=== PATIENT | male | born 1950 | race Caucasian/White ===

== ENCOUNTER 2016-06-22 10:42 | Outpatient (CLI) | payer MEDICARE ==
[~2016-06-22] VITALS: Ht 177.8 cm; Wt 76.4 kg
--- NOTE | ~2016-06-22 | HEMODYNAMI ---
PATIENT:JODY RODRIGUEZ MEDICAL RECORD: [id number] : 46 LOCATION:[facility] ADMISSION DATE: 06/22/16 Generatedon:06/22/201614:24 Patient name: JODY RODRIGUEZ Patient #: [id number] : 1950 Date of study: 06/22/2016 Page: Of Hemodynamic Procedure Report Patient Data Patient Demographics Procedure consent was obtained First Name: JODY Gender: Male Last Name: MICHAEL : 1950 Patient #: [id number] Age: 65 year(s) Race: SSN: [id number] Additional ID: [id number] Contact details Address: [address] [place] [address] State: [place] City: [place] Zip code: [address] Admission Admission Data Admission Date: 06/22/2016 Admission Time: 10:42 Arrival Date: 06/22/2016 Arrival Time: 10:42 Admit Source: Other Insurance Payor: Medicare Height (in.): 70 BSA: 1.95 (m2) Height (cm.): 177.8 BMI: 24.39 (kg/m2) Weight (lbs.): 170 Weight (kg.): 77.11 Lab Results Lab Result Date: 06/22/2016 Lab Result Time: 0:00 Biochemistry Name Units Result Min Max BUN mg/dl 10 --(-*--)-- 7 18 Creatinine mg/dl 0.9 --(-*--)-- 0.6 1.3 CBC Name Units Result Min Max Hemoglobin g/dl 13 -*(----)-- 13.5 17.5 Procedure Procedure Types Cath Procedure Diagnostic Procedure [facility] w/Coronaries PCI Procedure Coronary Stent Initial Miscellaneous Procedures Moderate Sedation up to 30 minutes Procedure Description Procedure Date Procedure Date: 06/22/2016 Procedure Start Time: 14:05 Procedure End Time: 14:22 Procedure Staff Name Function Saurav Baldwin MD Performing Physician Mayi Velasco RT Scrub Fernanda Cash RN Nurse Libby Savage RT Monitor Procedure Data Cath Procedure Fluoroscopy Diagnostic fluoroscopy Total fluoroscopy Time: 4 time: 4 min min Diagnostic fluoroscopy Total fluoroscopy dose: dose: 236.49 mGy 236.49 mGy Contrast Material Contrast Material Type Amount (ml) Isovue 370 87 Entry Location Entry Primary Successful Side Size Upsize Upsize Entry Closure Lombardo ccessful Closure Location (Fr) 1 (Fr) 2 (Fr) Remarks Device Remarks Radial Right 6 Fr Mechanical artery Short Compression Estimated blood loss: 5 ml Diagnostic catheters Device Type Used For End Catheter Placement Cordis RBL-A catheter (NO LV Angiography CHARGE) Procedure Complications No complications Procedure Medications Medication Administration Route Dosage Oxygen NC 2 l/min Heparin Flush Bag added to field 2 bags (1000units/500ml NS) Lidocaine 2% added to field 20 Radial Cocktail added to field 1 syringe (Verapomil 2mg/Nitro 400mcg/Heparin 1500units) Versed I.V. 1 mg Fentanyl I.V. 50 mcg Versed I.V. 1 mg Fentanyl I.V. 50 mcg Radial Cocktail I.A. 1 syringe (Verapomil 2mg/Nitro 400mcg/Heparin 1500units) Heparin Bolus I.V. 4000 units Integrilin (Bolus I.V. 6.8 ml 2mg/ml) Plavix P.O. 600 mg Hemodynamics Rest BSA: 1.95 (m2) HGB: 13 (g/dl) O2 Consumption: Estimated: 217.35 (ml/min) O2 Cons umption indexed: Estimated:111.46 (ml/min/m) Heart Rate: 57 (bpm) Pressure Samples Time Site Value (mmHg) Purpose Heart Use Rate(bpm) 14:08 LV 80/6,11 Snapshot 100 Gradients Valve Time Site Site Mean SEP/DFP Peak To Heart Use 1 2 (mmHg) (sec/min) Peak Rate (mmHg) (bpm) Aortic 14:08 LV AO 83 Snapshots Pre Cath Intra NCS Post Cath Vital Signs Time Heart Resp SPO2 NIBP (mmHg) Rhythm Pain Sedation Rate (ipm) (%) Status Level (bpm) 13:54:23 67 16 95 137/66(110) NSR 0 (11) 10(A) , No pain 13:58:57 57 24 96 136/52(119) NSR 0 (11) 10(A) , No pain 14:03:22 62 22 98 130/61(102) NSR 0 (11) 10(A) , No pain 14:07:31 69 22 97 107/92(97) NSR 0 (11) 9(A) , No pain 14:11:47 72 22 95 111/59(82) NSR 0 (11) 9(A) , No pain 14:16:03 70 20 95 113/57(91) NSR 0 (11) 9(A) , No pain 14:20:22 69 23 96 115/63(92) NSR 0 (11) 9(A) , No pain 14:21:44 70 22 95 126/66(99) NSR 0 (11) 10(A) , No pain Medications Time Medication Route Dose Verified Delivered Reason Note s Effectiveness by by 13:53:17 Oxygen NC 2 l/min Saurav Fernanda Per physician [facility]. Brian Cash RN, MD 13:53:24 Heparin Flush added 2 bags Saurav Mg used for Bag to [facility] procedure (1000units/500ml field MD GLOVER NS) 13:53:31 Lidocaine 2% added 20ml Saurav Saurav used for to vial [facility] procedure field MD GLOVER 13:53:38 Radial Cocktail added 1 Saurav Saurav used for (Verapomil to syringe [place] procedure 2mg/Nitro field MD [place] 400mcg/Heparin 1500units) 14:03:44 Versed I.V. 1 mg Saurav Fernanda for sedation [facility] Brian Cash RN, MD 14:03:51 Fentanyl I.V. 50 mcg Saurav Fernanda for sedation [facility] Brian Cash RN, MD 14:05:27 Versed I.V. 1 mg Saurav Fernanda for sedation [facility] Brian Cash RN, MD 14:05:38 Fentanyl I.V. 50 mcg Saurav Fernanda for sedation [facility] Brian Cash RN, MD 14:06:13 Radial Cocktail I.A. 1 Saurav Lewisory for (Verapomil syringe [place] vasodilation 2mg/Yudelka GLOVER MD 400mcg/Heparin 1500units) 14:13:53 Heparin Bolus I.V. 4000 Saurav Espinalca for dose units [facility] Brian Cash RN anticoagulation verified MD pippa muñoz 14:16:00 Integrilin I.V. 6.8 ml Saurav Michael for 3.2 ml (Bolus 2mg/ml) [facility]. Brian Cash RN antiplatelet wasted MD therapy 14:22:01 Plavix P.O. 600 mg Saurav Michael for [facility] Brian Cash RN antiplatelet MD therapy Procedure Log Time Note 13:40:39 Fernanda Cash RN sent for patient. Start room use. 13:43:37 Informed consent obtained and on chart 13:43:42 Diagnostic Cath Status : Elective 13:44:45 Time tracking: Regular hours 13:44:49 Plan of Care:Hemodynamics will remain stable., Cardiac rhythm will remain stable., Comfort level will be maintained., Respiratory function will remain adequate., Patient/ family verbilizes understanding of procedure., Procedure tolerated without complication., Recovers from procedure without complications.. 13:46:09 Patient received from Pre/Post Procedure Room to [facility] 3 Alert and oriented. Tansferred to table in Supine position. 13:46:11 Warm blankets applied, and олег hugger turned on for patient comfort. 13:46:11 Correct patient and procedure confirmed by team. 13:46:14 ECG and BP/O2 sat monitors applied to patient. 13:53:03 Vital chart was started 13:53:17 Oxygen 2 l/min NC was given by Fernanda Cash RN; Per physician; 13:53:24 Heparin Flush Bag (1000units/500ml NS) 2 bags added to field was given by Saurav Baldwin MD; used for procedure; 13:53:31 Lidocaine 2% 20ml vial added to field was given by Saurav Baldwin MD; used for procedure; 13:53:38 Radial Cocktail (Verapomil 2mg/Nitro 400mcg/Heparin 1500units) 1 syringe added to field was given by Saurav Baldwin MD; used for procedure; 13:59:34 Baseline sample Acquired. 13:59:39 Rhythm: sinus rhythm 13:59:40 Full Disclosure recording started 14:00:04 H&P Date Dictated: 05/31/2016 Within 30 days and on chart., H&P Addendum completed by physician on day of procedure. (MUST COMPLETE FOR ALL OUTPATIENTS). 14:00:05 Pre-procedure instructions explained to patient. 14:00:05 Pre-op teaching completed and patient verbalized understanding. 14:00:06 Family in waiting room. 14:00:08 Patient NPO since Midnight. 14:01:09 Is the patient allergic to Iodine/contrast media? No. 14:01:11 Was the patient premedicated? No 14:01:13 Is patient on blood thinner?Yes 14:01:20 ACC The patient was administered the following blood thiners within the last 24 hours: ACCAspirin 14:01:30 Patient diabetic? No. 14:01:32 Previous problem with sedation/anesthesia? No ? 14:01:34 Snore? Yes 14:01:35 Sleep apnea? No 14:01:36 Deviated septum? No 14:01:37 Opens mouth fully? Yes 14:01:38 Sticks out tongue? Yes 14:01:41 Airway obstruction? Yes copd 14:01:46 Dentures? No ? 14:01:49 Pre procedure: right dorsailis pedis pulse 1+ Palpable, but thready & weak; easily obliterated 14:01:53 Patient pain scale 0/10 ?. 14:02:09 IV patent on arrival in left forearm with 0.9% NaCl at [facility]. 14:02:34 Lab Result : BUN 10 mg/dl 14:02:34 Lab Result : Hemoglobin 13 g/dl 14:02:34 Lab Result : Creatinine 0.9 mg/dl 14:02:38 Lab results completed and on chart. 14:02:42 Right Radial & Right Groin area was prepped with chlora-prep and draped in sterile fashion 14:02:44 Alarms reviewed by R. N. 14:02:44 Sharps counted by scrub and verified by R.N. 14:02:45 Physician arrived 14:02:45 --------ALL STOP TIME OUT------ 14:02:46 Final Timeout: patient, procedure, and site verified with staff and physician. All members of the team are in agreement. 14:02:48 Right Radial & Right Groin site verified by team. 14:02:50 Physical assessment completed. ASA score P 2 - A patient with mild systemic disease as per Saurav Baldwin MD. 14:02:54 Sedation plan: IV Moderate Sedation Versed, Fentanyl 14:03:02 Use device set Radial Dx 14:03:04 Acist Syringe opened to sterile field. 14:03:04 Medline Cath Pack opened to sterile field. 14:03:04 Bag Decanter opened to sterile field. 14:03:05 Terumo 6Fr Slender Glidesheath opened to sterile field. 14:03:05 St Johnny 260cm J .035 wire opened to sterile field. 14:03:05 Acist Hand Control opened to sterile field. 14:03:06 Acist Manifold opened to sterile field. 14:03:06 Tegaderm 4 x 4 opened to sterile field. 14:03:44 Versed 1 mg I.V. was given by Fernanda Cash RN; for sedation; 14:03:51 Fentanyl 50 mcg I.V. was given by Fernanda Cash RN; for sedation; 14:04:02 Procedure started. 14:05:15 Local anesthetic to right radial artery with Lidocaine 2% by Saurav Baldwin MD.INITIAL ACCESS ONLY 14:05:27 Versed 1 mg I.V. was given by Fernanda Cash RN; for sedation; 14:05:37 A 6 Fr Short sheath was inserted into the Right Radial artery 14:05:38 Fentanyl 50 mcg I.V. was given by Fernanda Cash RN; for sedation; 14:06:13 Radial Cocktail (Verapomil 2mg/Nitro 400mcg/Heparin 1500units) 1 syringe I.A. was given by Saurav Baldwin MD; for vasodilation; 14:06:30 Zero performed for pressure channel P1 14:08:00 A Cordis RBL-A catheter (NO CHARGE) was advanced over the wire and used for LV Angiography. 14:08:08 LV hemodynamics recorded. 14:08:09 LV gram done using DELVALLE 14:08:12 Injector settings: Ml/sec: 5, Volume: 15, 14:08:17 EF : 55 % 14:08:35 LCA angiography performed. 14:09:32 Injector settings: Ml/sec: 3, Volume: 6, 14:10:17 RCA angiography performed. 14:10:21 Injector settings: Ml/sec: 3, Volume: 6, 14:12:09 Cordis 6FR XBLAD 3.5 guide catheter opened to sterile field. 14:12:09 Merit BasixCompak Inflation Kit opened to sterile field. 14:12:10 Main [place] 300cm 0.014 guide wire opened to sterile field. 14:12:12 Catheter removed. 14:12:22 6 Fr xblad 3.5 guide catheter was inserted over the wire 14:13:53 Heparin Bolus 4000 units I.V. was given by Fernanda Cash RN; for anticoagulation; dose verified wtih dr muñoz 14:14:38 cougar wire advanced. 14:16:00 Integrilin (Bolus 2mg/ml) 6.8 ml I.V. was given by Fernanda Cash RN; for antiplatelet therapy; 3.2 ml wasted 14:16:22 Wire advanced across lesion. 14:18:46 Inflation Number: 1 A NewsFixedtronic Integrity 3.0 X 15 stent was prepped and advanced across the Mid LAD. The stent was deployed at 14 SRAVANTHI for 0:10 (min:sec). 14:19:51 Stent catheter was removed intact over wire. 14:19:51 Wire removed. 14:19:52 Guide catheter removed. 14:20:02 Terumo TR Band Standard opened to sterile field. 14:20:12 Sheath removed intact; hemostasis achieved with Mechanical Compression to the Right Radial artery. 14:20:14 Procedure ended.(Physican Out) 14:21:04 Fluoroscopy time 04.00 minutes. 14:21:10 Fluoroscopy dose: 236.49 mGy 14:21:10 Flurop Dose total: 236.49 14:21:14 Contrast amount:Isovue 370 87ml. 14:21:16 Sharps counted by scrub and verified by R.N. 14:21:17 Insertion/operative site no bleeding no hematoma. 14:21:22 Post right radial artery:stable 14:21:27 TR band inflated with 10cc of air. 14:21:29 Post Procedure Pulses reassessed and unchanged 14:21:32 Post procedure rhythm: unchanged. 14:21:34 Estimated blood loss: 5 ml 14:21:36 Post procedure instruction explained to patient.Patient verbalizes understanding. 14:21:36 Patient needs reinforcement of post procedure teaching. 14:21:45 Procedure type changed to Cath procedure, Diagnostic procedure, LHC, LHC w/Coronaries, PCI procedure, Coronary Stent Initial, Miscellaneous Procedures, Moderate Sedation up to 30 minutes 14:21:46 Procedure and supply charges have been captured, reviewed, submitted and are correct. 14:21:51 Procedure Complication : No complications 14:21:53 Vital chart was stopped 14:21:53 See physician's report for complete and final results. 14:21:55 Report given to Pre/Post Procedure Room. 14:21:57 Patient transfered to Pre/Post Procedure Room with Stretcher. 14:22:00 Procedure ended. 14:22:00 Full Disclosure recording stopped 14:22:01 Plavix 600 mg P.O. was given by Fernanda Cash RN; for antiplatelet therapy; 14:22:13 ACC-PCI Only Patient was given prescriptions, or instructed by Saurav Baldwin MD to start/continue the following medications upon discharge: Plavix 14:22:15 End room use (Document Last) 14:23:08 Admit Source: Other 14:23:11 Arrival Date: 06/22/2016 10:42:00 AM 14:23:26 Insurance Payor : Medicare 14:23:44 Patient Height : 177.8 inches 14:23:49 Patient Weight : 77.11 lbs Intervention Summary Intervention Notes Time ActionType Lesion and Equipment Action# Pressure Duration Attributes Used 14:18:46 Place stent Mid LAD Medtronic 1 14 00:10 Integrity 3.0 X 15 stent Device Usage Item Name Manufacture Quantity Catalog Hospital Part Current Minimal Lot# / Number Charge Number Stock Stock Serial# Code Acist Acist 1 [id number] [id number] 301534 650342 20 Syringe Medical Systems Inc Medline Cardinal 1 [id number] 838927 49204 703521 5 Cath Pack Health Bag Microtek 1 2001S 578395 67173 348289 5 Decanter Medical Inc. Terumo 6Fr Terumo 1 [id number] 846117 325556 458008 [address] Johnny 1 [id number] 098872 888520 336203 30 260cm J .035 wire Acist Hand Acist 1 89841 129173 045930 679869 5 Control Medical Systems Inc Acist Acist 1 56487 262157 124497 076570 5 Manifold Medical Systems Inc Tegaderm 4 3M 1 1626W 346185 789023 564728 5 x 4 Cordis Cardinal 1 [id number] 982308 105843 5 RBL-A Health catheter (NO CHARGE) Cordis 6FR Cardinal 1 [id number] 389335 503105 555879 10 XBLAD 3.5 Health guide catheter Merit Merit 1 [id number] 950930 628859 834913 15 BasixCompak Medical Inflation Kit Main Main 1 [id number] 378192 863123 918190 1 [place] Vascular 300cm 0.014 guide wire Medtronic Medtronic 1 [id number] 908737 115110 211120 0 [id number] Integrity 3.0 X 15 stent Terumo TR Terumo 1 [id number] 118786 584438 40 Band Standard Signature Audit [place] Stage Time Signature Unsigned Intra-Procedure 06/22/2016 Libby Savage 2:24:48 PM RT(R) Signatures Monitor : Libby Savage RT Signature : Date : Time : [id number] [place] [address]
[2016-06-22 11:19] VITALS: BP 138/62; Ht 177.8 cm; Wt 76.4 kg
[2016-06-22] MEDS ORDERED: BAYER CHEWABLE81 MG PO (11:23)
[2016-06-22] MEDS ORDERED: PROTONIX40 MG PO (11:23)
[2016-06-22] MEDS ORDERED: CELEXA20 MG PO (11:23)
[2016-06-22] MEDS ORDERED: BREO ELLIPTA 21 EACH (11:24)
[2016-06-22] MEDS ORDERED: KLONOPIN0.5 MG PO (11:24)
[2016-06-22] MEDS ORDERED: VENTOLIN HFA18 GM INH (11:25)
[2016-06-22 12:29] LABS: BASOPHILS 0.3 % (0.0-2.0); EOSINOPHILS 3.2 % (0-7); HEMATOCRIT 38.7 % (42.0-54.0); IMMATURE GRANULOCYTES 0.1 % (0-5); LYMPHOCYTES 19.2 % (15-50); MCH 30.9 pg (26.0-34.0); MCHC 33.6 g/dL (31.0-37.0); MCV 91.9 fL (80.0-100.0); MEAN PLATELET VOLUME 10.6 fL (7.4-10.4); MONOCYTES 15.5 % (2-11); NEUTROPHILS 61.7 % (40-80); PLATELET COUNT 303 10x3/uL (130-400); RBC 4.21 10x6/uL (4.20-6.10); RDW 14.6 % (11.5-14.5)
[2016-06-22 12:46] LABS: CALC OSMOLALITY 276 mosm/kg (275-300); CARBON DIOXIDE 29.5 mmol/L (21.0-32.0); CHLORIDE - SERUM 105 mmol/L (98-107); CREATININE - SERUM 0.9 mg/dL (0.6-1.3); GLUCOSE 101 mg/dL (74-106); SODIUM 139 mmol/L (136-145); UREA NITROGEN 10 mg/dL (7-18); eGFR NON AFRICAN AMERICAN 89 mL/min (90-120)
[2016-06-22 12:47] LABS: POTASSIUM - SERUM 4.3 mmol/L (3.5-5.1)
[2016-06-22] MEDS ORDERED: PLAVIX75 MG PO (14:45)
--- NOTE | 2016-06-22 16:38 | NUR ---
1500-TR BAND INTACT, NO BLEEDING NOTED, SLEEPING 1530-TR BAND UNCHANGED
--- NOTE | 2016-06-22 17:51 | NUR ---
1745-3CCAIR ATTEMPTED-BLEEDING NOTED, REINFLATED
--- NOTE | 2016-06-24 14:02 | OP ---
PATIENT NAME: JODY RODRIGUEZ MEDICAL RECORD: [id number] :46 LOCATION:D.CAT ADMISSION DATE: SURGEON: CADE ALEXANDER MD DATE OF OPERATION: 06/22/2016 PROCEDURES: Left heart catheterization, selective coronary angiography, right radial approach. CATHETERS: [place] catheter. The procedure was well tolerated and we proceeded immediately to PTCA stenting after the procedure was finished. FINDINGS: Left ventriculography in the 30-degree DELVALLE view. Normal wall motion, normal systolic function. CORONARY ANATOMY: Left main: Left main is free of disease. LAD: LAD has a tight 90% stenosis after takeoff of the first septal, best seen in the DELVALLE caudal view. Circumflex: Circumflex disease. Right coronary artery: Has a distal stenosis about 80%. IMPRESSION: Two-vessel disease. PLAN: Intervention in a staged fashion. Using an indwelling sheath, an XB LAD guide catheter provided good guide catheter support followed by a 300 cm [place] XT wire was placed across the totally occluded LAD ____ of this vessel was followed by 3.0 x 15 mm Integrity nondrug-eluting stent inflated to 14 atmospheres for 45 seconds. Final injection shows excellent resolution of 80% to 90% stenosis, no significant residual. APPLE flow was 3 throughout the procedure. Heparin was used in the case. Plavix was loaded in the lab. Sheath closed with TR band. TRANSINT:[id number] Voice Confirmation ID: [id number] DOCUMENT ID: [id number] CADE ALEXANDER MD at 1402 CC: [id number] DICTATION DATE: 06/22/16 1427 LEAD SUPPLY WORKER: 06/22/16 2327 DEP CLI 06/22/16 [id number] [place] [address]
== END 2016-06-22 18:45 | disposition home or self-care (01) ==
LOC: D.CATH 10:42
PROVIDERS: Internal Medicine Interventional Cardiology
DX: I25.119 Atherosclerotic heart disease of native coronary artery with unspecified angina pectoris (principal)

== ENCOUNTER 2016-06-30 10:54 | Outpatient (CLI) | payer MEDICARE ==
[~2016-06-30] VITALS: Ht 177.8 cm; Wt 76.4 kg
--- NOTE | ~2016-06-30 | HEMODYNAMI ---
PATIENT:JODY RODRIGUEZ MEDICAL RECORD: [id number] : 46 LOCATION:DAlexiCAT ADMISSION DATE: 06/30/16 Generatedon:06/30/201613:30 Patient name: JODY RODRIGUEZ Patient #: [id number] : 1950 Date of study: 06/30/2016 Page: Of Hemodynamic Procedure Report Patient Data Patient Demographics Procedure consent was obtained First Name: JODY Gender: Male Last Name: MICHAEL : 1950 Patient #: [id number] Age: 65 year(s) Race: SSN: [id number] Additional ID: [id number] Contact details Address: [address] [place] [address] State: [place] City: [place] Zip code: [address] Past Medical History Allergies: No known allergies Admission Admission Data Admission Date: 06/30/2016 Admission Time: 10:54 Arrival Date: 06/30/2016 Arrival Time: 13:00 Admit Source: Other Insurance Payor: Medicare Height (in.): 70 BSA: 1.94 (m2) Height (cm.): 177.8 BMI: 24.11 (kg/m2) Weight (lbs.): 168 Weight (kg.): 76.2 Lab Results Lab Result Date: 06/30/2016 Lab Result Time: 11:35 Biochemistry Name Units Result Min Max BUN mg/dl 10 --(-*--)-- 7 18 Creatinine mg/dl 1 --(--*-)-- 0.6 1.3 CBC Name Units Result Min Max Hematocrit % 40.9 -*(----)-- 42 54 Hemoglobin g/dl 13.4 -*(----)-- 13.5 17.5 Procedure Procedure Types Cath Procedure PCI Procedure Coronary Stent Initial Miscellaneous Procedures Moderate Sedation up to 15 minutes Procedure Description Procedure Date Procedure Date: 06/30/2016 Procedure Start Time: 13:14 Procedure End Time: 13:29 Procedure Staff Name Function Saurav Baldwin MD Performing Physician Libby Savage RT Scrub Fernanda Cash RN Nurse Hussein Esqueda RT Monitor Indication Angina Procedure Data Cath Procedure Fluoroscopy Diagnostic fluoroscopy Total fluoroscopy Time: 3.2 time: 3.2 min min Diagnostic fluoroscopy Total fluoroscopy dose: 200 dose: 200 mGy mGy Contrast Material Contrast Material Type Amount (ml) Isovue 300 63 Entry Location Entry Primary Successful Side Size Upsize Upsize Entry Closure Lombardo ccessful Closure Location (Fr) 1 (Fr) 2 (Fr) Remarks Device Remarks Radial Right 6 Fr Mechanical artery Short Compression Estimated blood loss: 10 ml Procedure Complications No complications Procedure Medications Medication Administration Route Dosage Oxygen NC 2 l/min Heparin Flush Bag added to field 2 bags (1000units/500ml NS) Lidocaine 2% added to field 20 Versed I.V. 1 mg Fentanyl I.V. 50 mcg Versed I.V. 1 mg Fentanyl I.V. 50 mcg Heparin Bolus I.V. 4000 units Hemodynamics Rest BSA: 1.94 (m2) HGB: 13.4 (g/dl) O2 Consumption: Estimated: 214.99 (ml/min) O2 Co nsumption indexed: Estimated:110.82 (ml/min/m) Heart Rate: 56 (bpm) Snapshots Pre Cath Intra NCS Post Cath Vital Signs Time Heart Resp SPO2 etCO2 MF5tvyt NIBP (mmHg) Rhythm Pain Sedation Rate (ipm) (%) (mmHg) (mmHg) Status Level (bpm) 12:52:11 59 26 100 0 0 160/74(128) NSR 0 (11) 10(A) , No pain 12:57:10 55 21 100 0 0 Measuring NSR 0 (11) 10(A) , No pain 12:57:28 55 21 100 0 0 154/69(125) NSR 0 (11) 10(A) , No pain 13:01:57 58 21 100 0 0 143/68(108) NSR 0 (11) 10(A) , No pain 13:06:21 61 20 100 0 0 126/66(100) NSR 0 (11) 10(A) , No pain 13:10:39 62 20 97 0 0 127/65(96) NSR 0 (11) 10(A) , No pain 13:14:46 63 17 97 0 0 115/59(89) NSR 0 (11) 10(A) , No pain 13:18:59 76 19 96 0 0 112/57(83) NSR 0 (11) 9(A) , No pain 13:23:12 75 19 96 0 0 115/57(82) NSR 0 (11) 9(A) , No pain 13:27:24 77 19 98 0 0 124/68(90) NSR 0 (11) 9(A) , No pain Medications Time Medication Route Dose Verified Delivered Reason Notes Effectiveness by by 12:53:56 Oxygen NC 2 Saurav Fernanda Per physician l/min St. Brian Cash RN, MD 12:54:04 Heparin Flush added 2 Saurav Saurav used for Bag to bags [facility] procedure (1000units/500ml field MD [place] NS) 12:54:12 Lidocaine 2% added 20ml [facility]av [facility]av [facility] [place] 13:12:42 Versed I.V. 1 mg Saurav Fernanda for sedation [facility]. Brian Cash RN, MD 13:12:50 Fentanyl I.V. 50 Saurav Fernanda for sedation mcg [facility]. Brian Cash RN, MD 13:14:58 Versed I.V. 1 mg Saurav Fernanda for sedation St. Brian Cash RN, MD 13:15:01 Fentanyl I.V. 50 Saurav Fernanda for sedation mcg St. Brian Cash RN, MD 13:15:57 Heparin Bolus I.V. 4000 Saurav Fernanda for dose units St. Brian Cash RN anticoagulation verified MD by dr muñoz Procedure Log Time Note 12:25:56 Libby Savage RT(R) sent for patient. Start room use. 12:34:42 Admit Source: Other 12:34:52 Arrival Date: 06/30/2016 1:00:00 PM 12:35:04 Insurance Payor : Medicare 12:35:46 Indication : Angina 12:36:16 Time tracking: Regular hours 12:36:21 Plan of Care:Hemodynamics will remain stable., Cardiac rhythm will remain stable., Comfort level will be maintained., Respiratory function will remain adequate., Patient/ family verbilizes understanding of procedure., Procedure tolerated without complication., Recovers from procedure without complications.. 12:45:46 Patient received from Pre/Post Procedure Room to CCL 1 Alert and oriented. Tansferred to table in Supine position. 12:45:48 Warm blankets applied, and олег hugger turned on for patient comfort. 12:46:07 Correct patient and procedure confirmed by team. 12:46:09 Signed procedure consent form obtained from patient. 12:46:10 ECG and BP/O2 sat monitors applied to patient. 12:48:01 Vital chart was started 12:53:29 Baseline sample Acquired. 12:53:37 Rhythm: sinus rhythm 12:53:38 Full Disclosure recording started 12:53:44 H&P Date Dictated: 06/30/2016 Within 30 days and on chart., H&P Addendum completed by physician on day of procedure. (MUST COMPLETE FOR ALL OUTPATIENTS). 12:53:45 Pre-procedure instructions explained to patient. 12:53:46 Pre-op teaching completed and patient verbalized understanding. 12:53:47 Family in waiting room. 12:53:49 Patient NPO since Midnight. 12:53:54 Patient allergic to No known allergies 12:53:56 Oxygen 2 l/min NC was administered by Fernanda Cash RN; Per physician; 12:53:56 Is the patient allergic to Iodine/contrast media? No. 12:53:58 Is patient on blood thinner?Yes 12:54:00 ACC The patient was administered the following blood thiners within the last 24 hours: ACCPlavix 12:54:02 Patient diabetic? No. 12:54:04 Heparin Flush Bag (1000units/500ml NS) 2 bags added to field was administered by Saurav Baldwin MD; used for procedure; 12:54:06 Previous problem with sedation/anesthesia? No ? 12:54:12 Lidocaine 2% 20ml vial added to field was administered by Saurav Baldwin MD; used for procedure; 12:58:20 Snore? Yes 12:58:22 Sleep apnea? No 12:58:23 Deviated septum? No 12:58:25 Opens mouth fully? Yes 12:58:26 Sticks out tongue? Yes 12:58:29 Airway obstruction? Yes COPD 12:58:33 Dentures? No ? 12:58:48 Modified Omar's test Ulnar < 7 seconds 12:58:50 Patient pain scale 0/10 ?. 12:59:04 IV patent on arrival in left hand with 0.9% NaCl at [facility]. 13:00:20 Lab Result : BUN 10 mg/dl 13:00:20 Lab Result : Creatinine 1 mg/dl 13:00:20 Lab Result : Hemoglobin 13.4 g/dl 13:00:20 Lab Result : Hematocrit 40.9 % 13:00:23 Lab results completed and on chart. 13:00:33 Right Radial & Right Groin area was prepped with chlora-prep and draped in sterile fashion 13:00:34 Alarms reviewed by R. N. 13:00:34 Sharps counted by scrub and verified by R.N. 13:00:38 Use device set Radial PCI 13:00:39 Tegaderm 4 x 4 opened to sterile field. 13:00:40 Acist Manifold opened to sterile field. 13:00:41 Acist Syringe opened to sterile field. 13:00:42 Acist Hand Control opened to sterile field. 13:00:42 Bag Decanter opened to sterile field. 13:00:43 Medline Cath Pack opened to sterile field. 13:00:44 Merit BasixCompak Inflation Kit opened to sterile field. 13:00:45 Terumo 6Fr Slender Glidesheath opened to sterile field. 13:00:46 St Johnny 260cm Straight .035 wire opened to sterile field. 13:00:54 Physician paged 13:01:37 Patient Height : 70 cm 13:01:43 Patient Weight : 168 kg 13:01:51 PCI Cath Status : Elective 13:07:44 Zero performed for pressure channel P1 13:12:00 Physician arrived 13:12:01 --------ALL STOP TIME OUT------ 13:12:02 Final Timeout: patient, procedure, and site verified with staff and physician. All members of the team are in agreement. 13:12:06 Right Radial & Right Groin site verified by team. 13:12:09 Physical assessment completed. ASA score P 2 - A patient with mild systemic disease as per Saurav Baldwin MD. 13:12:14 Sedation plan: IV Moderate Sedation Versed, Fentanyl 13:12:42 Versed 1 mg I.V. was administered by Fernanda Cash RN; for sedation; 13:12:50 Fentanyl 50 mcg I.V. was administered by Fernanda Cash RN; for sedation; 13:13:55 Procedure started. 13:14:02 Local anesthetic to right radial artery with Lidocaine 2% by Saurav Baldwin MD.INITIAL ACCESS ONLY 13:14:48 Medtronic Launcher 6Fr HS II guide catheter opened to sterile field. 13:14:58 Versed 1 mg I.V. was administered by Fernanda Cash RN; for sedation; 13:15:01 Fentanyl 50 mcg I.V. was administered by Fernanda Cash RN; for sedation; 13:15:15 A 6 Fr Short sheath was inserted into the Right Radial artery 13:15:57 Heparin Bolus 4000 units I.V. was administered by Fernanda Cash RN; for anticoagulation; dose verified by dr muñoz 13:16:20 6 Fr HS 2 guide catheter was inserted over the wire 13:19:41 Main Garfield 300cm 0.014 guide wire opened to sterile field. 13:19:53 cougar wire advanced. 13:19:55 Wire advanced across lesion. 13:23:10 Inflation Number: 1 A Medtronic Integrity 3.0 X 15 stent was prepped and advanced across the Mid RCA. The stent was deployed at 14 SRAVANTHI for 0:40 (min:sec). 13:24:39 Inflation number: 2 The stent balloon was then re-inflated across the Mid RCA to 12 SRAVANTHI for 0:40 (min:sec). 13:25:19 Wire removed. 13:25:19 Guide catheter removed. 13:26:24 Terumo TR Band Standard opened to sterile field. 13:26:35 Sheath removed intact; hemostasis achieved with Mechanical Compression to the Right Radial artery. 13:26:38 Procedure ended.(Physican Out) 13:26:51 Fluoroscopy time 03.20 minutes. 13:26:55 Flurop Dose total: 200 13:26:55 Fluoroscopy dose: 200 mGy 13:27:07 Contrast amount:Isovue 300 63ml. 13:27:09 Sharps counted by scrub and verified by R.N. 13:27:18 TR band inflated with 12cc of air. 13:27:31 Insertion/operative site no bleeding no hematoma. 13:27:38 Post right radial artery:stable, soft, clean and dry 13:27:39 Post Procedure Pulses reassessed and unchanged 13:27:42 Post-procedure physical assessment completed. ASA score P 2 - A patient with mild systemic disease as per Saurav Baldwin MD. 13:27:44 Post procedure rhythm: unchanged. 13:27:46 Estimated blood loss: 10 ml 13:27:48 Post procedure instruction explained to patient.Patient verbalizes understanding. 13:27:49 Patient needs reinforcement of post procedure teaching. 13:28:23 Procedure type changed to Cath procedure, PCI procedure, Coronary Stent Initial, Miscellaneous Procedures, Moderate Sedation up to 15 minutes 13:28:49 Procedure and supply charges have been captured, reviewed, submitted and are correct. 13:28:52 Procedure Complication : No complications 13:28:54 Vital chart was stopped 13:28:57 See physician's report for complete and final results. 13:28:59 Report given to Pre/Post Procedure Room. 13:29:02 Patient transfered to Pre/Post Procedure Room with Stretcher. 13:29:04 Procedure ended. 13:29:04 Full Disclosure recording stopped 13:29:34 ACC-PCI Only Patient was given prescriptions, or instructed by Saurav Baldwin MD to start/continue the following medications upon discharge: Plavix 13:29:36 End room use (Document Last) Intervention Summary Intervention Notes Time ActionType Lesion and Equipment Action# Pressure Duration Attributes Used 13:23:10 Place stent Mid RCA Medtronic 1 14 00:40 Integrity 3.0 X 15 stent 13:24:39 Reinflate Mid RCA Medtronic 2 12 00:40 stent Integrity balloon 3.0 X 15 stent Device Usage Item Name Manufacture Quantity Catalog Hospital Part Current Minimal Lot# / Number Charge Number Stock Stock Serial# Code [facility] 4 1 [id number] [id number] 5 x 4 Acist Acist 1 68882 108380 244676 [id number] 5 Manifold Medical Systems Inc Acist Acist 1 05671 112199 794570 800581 20 Syringe Medical Systems Inc Acist Hand Acist 1 39563 920018 676412 241309 5 Control Medical Systems Inc Bag Microtek 1 2002S 864116 13852 414345 5 Decanter Medical Inc. Medline Cardinal 1 [id number] 456542 57867 143509 5 Paybubble [facility] Merit 1 [id number] 009359 500489 593210 15 BasProfitBricks Medical Inflation Kit Terumo 6Fr Terumo 1 [id number] 783481 267482 679289 [address] Johnny 1 076629 566696 365776 652796 1 260cm Straight .035 wire Medtronic Medtronic 1 [id number] 731360 80024 194261 1 Launcher 6Fr HS II guide catheter Main Main 1 [id number] 045770 068965 451261 1 Garfield Vascular 300cm 0.014 guide wire Medtronic Medtronic 1 [id number] 281617 546869 565773 6 [id number] Integrity 3.0 X 15 stent Terumo TR Terumo 1 [id number] 035911 137741 955949 40 Band Standard Signature Audit [place] Stage Time Signature Unsigned Intra-Procedure 06/30/2016 Hussein Esqueda 1:29:57 PM RT(R) Signatures Monitor : Hussein Esqueda RT Signature : Date : Time : [place] [id number] [place] [address]
[~2016-06-30 10:54] MED LIST: BAYER CHEWABLE81 MG PO; BREO ELLIPTA 21 EACH; CELEXA20 MG PO; KLONOPIN0.5 MG PO; PLAVIX75 MG PO; PROTONIX40 MG PO; VENTOLIN HFA18 GM INH
[2016-06-30 11:20] VITALS: BP 135/66; Ht 177.8 cm; Wt 76.4 kg
[2016-06-30 11:42] LABS: BASOPHILS 0.5 % (0.0-2.0); EOSINOPHILS 2.7 % (0-7); HEMATOCRIT 40.9 % (42.0-54.0); HEMOGLOBIN 13.4 g/dL (13.5-17.5); IMMATURE GRANULOCYTES 0.4 % (0-5); LYMPHOCYTES 18.5 % (15-50); MCH 30.2 pg (26.0-34.0); MCHC 32.8 g/dL (31.0-37.0); MCV 92.3 fL (80.0-100.0); MEAN PLATELET VOLUME 9.6 fL (7.4-10.4); NEUTROPHILS 66.9 % (40-80); PLATELET COUNT 307 10x3/uL (130-400); RBC 4.43 10x6/uL (4.20-6.10); RDW 14.2 % (11.5-14.5); WBC 7.5 10x3/uL (4.8-10.8)
[2016-06-30 12:05] LABS: CALC OSMOLALITY 275 mosm/kg (275-300); CALCIUM 8.7 mg/dL (8.5-10.1); CARBON DIOXIDE 30.4 mmol/L (21.0-32.0); CHLORIDE - SERUM 102 mmol/L (98-107); GLUCOSE 80 mg/dL (74-106); POTASSIUM - SERUM 4.1 mmol/L (3.5-5.1); SODIUM 139 mmol/L (136-145); UREA NITROGEN 10 mg/dL (7-18); eGFR NON AFRICAN AMERICAN 79 mL/min (90-120)
--- NOTE | 2016-06-30 14:00 | NUR ---
1400-URINAL GIVEN, TR BAND INTACT, NO BLEEDING NOTED
--- NOTE | 2016-06-30 16:11 | NUR ---
1430-RESTING COMFORTABLY, TR BAND INTACT- NO BLEEDING NOTED
--- NOTE | 2016-06-30 17:10 | NUR ---
1645- IV D'C WITH CATH TIP INTACT, WRITTEN AND VERBAL INSTRUCTIONS GIVEN TO PT AND SISTERS, VERBAL UNDERSTANDING. DENIES FURTHUR NEEDS
--- NOTE | 2016-07-02 09:45 | HP ---
PATIENT: JODY RODRIGUEZ MEDICAL RECORD: [id number] ACCOUNT: [id number] LOCATION:[facility]ANDA : 46 ADMISSION DATE: 06/30/16 HISTORY AND PHYSICAL EXAMINATION HISTORY OF PRESENT ILLNESS: The patient is a 65-year-old gentleman with a known history of coronary artery disease, status post recent intervention to LAD, still having some angina, though this has improved, admitted for staged intervention of the right coronary. PAST MEDICAL HISTORY: 1. History of hypertension. 2. Known history of coronary artery disease. 3. Obstructive pulmonary disease. MEDICATIONS: Include Clonazepam 1 mg p.o. at bedtime, Celexa 20 mg p.o. daily, meclizine 25 q.6 p.r.n. and albuterol inhaler 2 puffs b.i.d. SOCIAL HISTORY: He lives in [address]. He takes care of all ADLs. Nonsmoker. REVIEW OF SYSTEMS: The patient reports easy bruising but reports no swollen glands. The patient reports no fever, no night sweats, no significant weight gain, no significant weight loss. No significant exercise tolerance. The patient reports no dry eyes, no irritation, no vision change. Patient reports no difficulty hearing and no ear pain. Patient reports no frequent nose bleeds or nose and sinus problems. Patient reports on arm pain on exertion. No shortness of breath while lying down. No history of heart murmur. Patient reports no cough, no wheezing or coughing up blood. Patient reports no abdominal pain, no vomiting. Normal appetite. No diarrhea and not vomiting blood. No nausea and no constipation. Patient reports no incontinence. No difficulty urinating. No hematuria. No increased frequency. Patient reports no muscle aches. No weakness, no arthralgias, no back pain. No swelling of the extremities. Patient reports no abnormal mole, no jaundice, no rashes. Reports no loss of consciousness. No weakness and no numbness. No seizures, dizziness, or headaches. The patient reports no depression, no sleep disturbance, feeling safe in a relationship and no alcohol abuse. Patient reports on fatigue. Reports no runny nose or sinus pressure. No itching, no hives, and no frequent sneezing. PHYSICAL EXAMINATION: GENERAL: Pleasant gentleman in no acute distress. VITAL SIGNS: Blood pressure 135/66, pulse 70 and regular. HEENT: Normocephalic and atraumatic. NECK: No JVD or bruit HEART: Regular. LUNGS: [place] clear. ABDOMEN: Soft, nontender. EXTREMITIES: Pulses 2+ with no edema. IMPRESSION: Known history of coronary artery disease, status post LAD intervention. PLAN: Intervention of the right momentarily. TRANSINT:[id number] Voice Confirmation ID: [id number] DOCUMENT ID: [id number] HISTORY AND PHYSICAL [id number] JODY RODRIGUEZ,CADE Bah MD at 0945 CC: [id number] DICTATION DATE: 06/30/16 1329 SOCIAL MEDIA CONTENT SPECIALIST: 06/30/16 1418 DEP CLI 06/30/16 [place] [id number] [place] [address]
--- NOTE | 2016-07-02 09:45 | OP ---
PATIENT NAME: JODY RODRIGUEZ MEDICAL RECORD: [id number] :46 LOCATION:D.CAT ADMISSION DATE: SURGEON: CADE ALEXANDER MD DATE OF OPERATION: 06/30/2016 For catheterization report, please see result dictated previously. DESCRIPTION OF PROCEDURE: After sheath was put on the right radial artery, a hockey stick guide catheter provided excellent guide support to the right coronary. Repeat small business consultant films showed 80% stenosis in the mid portion, ____ the RV branch. Stent deployed was a 3.0 x 15 mm Integrity nondrug-eluting stent inflated up to 14 atmospheres for 45 seconds. Final injection show excellent resolution of 80% stenosis, no significant residual. APPLE flow was 3 throughout the procedure. The patient was on Plavix, heparin was used during the case. Sheath closed with ExoSeal device. TRANSINT:[id number] Voice Confirmation ID: [id number] DOCUMENT ID: [id number] CADE ALEXANDER MD at 0945 CC: [id number] DICTATION DATE: 06/30/16 1327 CHISEL WORKER: 06/30/16 2232 DEP CLI 06/30/16 [place] [id number] [place] [id number]
== END 2016-06-30 17:00 | disposition home or self-care (01) ==
LOC: D.CATH 10:54
PROVIDERS: Internal Medicine Interventional Cardiology
DX: I25.119 Atherosclerotic heart disease of native coronary artery with unspecified angina pectoris (principal)

== ENCOUNTER 2018-09-09 05:00 | Inpatient (IN) | payer MEDICARE ==
[~2018-09-09] VITALS: Ht 177.8 cm; Wt 60.0 kg
--- NOTE | ~2018-09-09 | OP ---
PATIENT NAME: JODY RODRIGUEZ MEDICAL RECORD: [id number] :46 LOCATION:D.M2 D.2116 ADMISSION DATE:09/09/18 SURGEON: SANJUANITA CARY MD DATE OF OPERATION: 09/11/2018 PROCEDURES: 1. PTCA stent RCA. 2. Intravascular ultrasound of the LAD. 3. IFR LAD. 4. IFR left circumflex 5. Left heart catheterization. 6. Selective coronary angiography. 7. Left ventriculogram. INDICATION: Non-Q-wave myocardial infarction, coronary artery disease, and cardiomyopathy. PROCEDURE IN DETAIL: After informed consent was obtained and after a detailed description of the risks, benefits as well as alternative therapies, the patient elected to proceed with angiogram and angioplasty. The right radial area was prepped and draped in a normal sterile fashion. Right radial artery was cannulated via modified Seldinger technique with placement of 6-Faroese sheath. All catheters exchanged through this sheath. FINDINGS: The left ventriculogram was performed in standard 30-degree DELVALLE view reveals mildly depressed ejection fraction at 40%. SELECTIVE CORONARY ANGIOGRAPHY: 1. Left main is with no significant angiographic disease. 2. Left anterior descending has previously placed stents proximally. There is a questionable stenosis at the ostium. This is 61% by intravascular ultrasound; however, IFR was normal. 3. Left circumflex has a questionable stenosis in the mid vessel; however, IFR was normal. 4. The right coronary artery has multiple previously placed stents. There is 90% in-stent restenosis throughout. PTCA STENT OF THE RCA: Stents used were 3.0 x 38 and 3.0 x 15, both Baltazar stents. Result was 0% residual stenosis. OVERALL IMPRESSION: Successful percutaneous transluminal coronary angioplasty stent of the right coronary artery going from 90% initial stenosis that was in-stent restenosis to 0% residual. TRANSINT:[id number] Voice Confirmation ID: [id number] DOCUMENT ID: [id number] SANJUANITA CARY MD CC: [id number] DICTATION DATE: 09/11/18 1038 BIGHT MAKER: 09/11/18 1307 ADM IN [facility] [address] [place] [address]
--- NOTE | ~2018-09-09 | HEMODYNAMI ---
PATIENT:JODY RODRIGUEZ MEDICAL RECORD: [id number] : 46 [id number] ADMISSION DATE: 09/09/18 Generatedon:09/11/201810:39 Patient name: JODY RODRIGUEZ Patient #: [id number] : 1950 Date of study: 09/11/2018 Page: Of Hemodynamic Procedure Report Patient Data Patient Demographics Procedure consent was obtained First Name: JODY Gender: Male Last Name: MICHAEL : 1950 Patient #: [id number] Age: 67 year(s) Race: SSN: [id number] Additional ID: [id number] Contact details Address: [address] [place] [address] State: [place] City: [place] Zip code: [address] Past Medical History Allergies: No known allergies Admission Admission Data Admission Date: 09/09/2018 Admission Time: 15:09 Admit Source: Emergency department Room #: D.2116 Lab Results Lab Result Date: 09/11/2018 Lab Result Time: 0:00 Biochemistry Name Units Result Min Max Troponin l ng/ml 3.1 --(----)-* 0 0.06 CBC Name Units Result Min Max Hematocrit % 36.6 *-(----)-- 42 54 Hemoglobin g/dl 12.6 -*(----)-- 13.5 17.5 Procedure Procedure Types Cath Procedure Diagnostic Procedure LHC LHC w/Coronaries FFR/IVUS FFR Initial FFR Additional Intra-Coronary IVUS Initial Sedation Charges Moderate Sedation up to 15 minutes PCI Procedure Coronary Stent Coronary Stent Initial Procedure Description Procedure Date Procedure Date: 09/11/2018 Procedure Start Time: 10:14 Procedure End Time: 10:38 Procedure Staff Name Function Israel Viera MD Performing Physician Hussein Esqueda RT Monitor Libby Savage RT Scrub Gillian Mesa RN Nurse Procedure Data Cath Procedure Fluoroscopy Diagnostic fluoroscopy Total fluoroscopy Time: 6.2 time: 6.2 min min Diagnostic fluoroscopy Total fluoroscopy dose: 423 dose: 423 mGy mGy Contrast Material Contrast Material Type Amount (ml) Isovue 300 102 Entry Location Entry Primary Successful Side Size Upsize Upsize Entry Closure Lombardo ccessful Closure Location (Fr) 1 (Fr) 2 (Fr) Remarks Device Remarks Radial Right 6 Fr Mechanical artery Short Compression Estimated blood loss: 10 ml Diagnostic catheters Device Type Used For End Catheter Placement DIAGNOSTIC Clarita 110cm 5 Procedure Fr catheter ([id number]) Procedure Complications No complications Procedure Medications Medication Administration Route Dosage 0.9% NaCl I.V. 100 ml/hr Oxygen etCO2 Nasal cannula 2 l/min Lidocaine 2% added to field 20 Heparin Flush Bag added to field 2 bags (1000units/500ml NS) Radial Cocktail added to field 1 syringe (Verapamil 2mg/Nitro 400mcg/Heparin 1500units) Versed I.V. 2 mg Fentanyl I.V. 50 mcg Dobutamine I.V. drip 5 mcg/kg/min (500mg/250ml D5W) Heparin Bolus I.V. 4000 units Hemodynamics Rest HGB: 12.6 (g/dl) Heart Rate: 59 (bpm) Snapshots Pre Cath Intra NCS Post Cath Vital Signs Time Heart Resp SPO2 etCO2 NIBP Rhythm Pain Sedation Rate (ipm) (%) (mmHg) (mmHg) Status Level (bpm) 10:11:56 58 14 98 23.1 119/48(90) SB 0 (11) 10(A) , No pain 10:16:14 62 13 98 11.1 110/55(70) NSR 0 (11) 9(A) , No pain 10:20:26 61 14 98 14.1 84/45(58) NSR 0 (11) 9(A) , No pain 10:24:36 57 13 98 16.4 91/47(59) SB 0 (11) 9(A) , No pain 10:28:46 57 13 98 12.9 94/50(62) SB 0 (11) 9(A) , No pain 10:32:53 63 10 98 13.4 100/57(70) SB 0 (11) 10(A) , No pain 10:37:05 62 15 99 23.1 107/54(84) SB 0 (11) 10(A) , No pain Medications Time Medication Route Dose Verified Delivered Reason Notes Effectiveness by by 10:14:35 0.9% NaCl I.V. 100 ml/hr Israel Gillian used for Aylin Mesa tso 10:14:41 Oxygen etCO2 2 l/min Israel Gillian used for Nasal Aylin Mesa procedure cannula RN 10:14:46 Lidocaine 2% added 20ml vial Israel Wood for local to Aylin Viera MD anesthetic field 10:14:50 Heparin Flush added 2 bags Israel Wood used for Bag to Aylin Viera MD procedure (1000units/500ml field NS) 10:14:58 Radial Cocktail added 1 syringe Israel Wood used for (Verapamil to Aylin Viera MD procedure 2mg/Nitro field 400mcg/Heparin 1500units) 10:15:04 Versed I.V. 2 mg Israel Pearsonyla for sedation Aylin Mesa RN 10:15:09 Fentanyl I.V. 50 mcg Israel Fernandeza for sedation Aylin Mesa RN 10:17:16 Dobutamine I.V. 5 Israel Pearsonyla Per physician infusing (500mg/250ml drip mcg/kg/min Aylin Mesa upon D5W) RN arrival to 10:20:17 Heparin Bolus I.V. 4000 units Israel Gillian for verified Aylin Mesa anticoagulation with Dr. EMILIE Viera Procedure Log Time Note 9:42:29 Informed consent obtained and on chart 9:42:33 Admit Source: Emergency department 9:42:50 Diagnostic Cath status Elective 9:42:52 Time tracking: Regular hours (M-F 7:00 - 5:00) 9:42:55 Plan of Care:Hemodynamics will remain stable., Cardiac rhythm will remain stable., Comfort level will be maintained., Respiratory function will remain adequate., Patient/ family verbilizes understanding of procedure., Procedure tolerated without complication., Recovers from procedure without complications.. 9:44:10 H&P Date Dictated: 09/09/2018 Within 30 days and on chart.. 9:44:16 Lab results completed and on chart. 9:44:19 Hussein Esqueda RT(R) sent for patient. Start room use. 9:55:45 Patient received from Med II to CCL 1 Alert and oriented. Tansferred to table in Supine position. 9:55:46 Warm blankets applied, and олег hugger turned on for patient comfort. 9:55:47 Correct patient and procedure confirmed by team. 9:55:48 ECG and BP/O2 sat monitors applied to patient. 9:55:48 Pre-procedure instructions explained to patient. 9:55:49 Pre-op teaching completed and patient verbalized understanding. 9:55:51 Family in patients room. 9:55:52 Patient NPO since Midnight. 10:10:41 Vital chart was started 10:10:43 Baseline sample Acquired. 10::52 Rhythm: sinus rhythm 10:11:01 IV left forearm D/C'd due to infiltration. 10:11:12 IV started by Gillian Mesa RN inleft wrist with a 22 gauge IV catheter with 0.9% NaCl at KVO. 10::52 Lab Result : Troponin l 3.1 ng/ml 10:11:52 Lab Result : Hematocrit 36.6 % 10:11:52 Lab Result : Hemoglobin 12.6 g/dl 10:11:58 Is the patient allergic to Iodine/contrast media? No. 10:11:59 Is patient on blood thinner?Yes 10:12:01 ACC The patient was administered the following blood thiners within the last 24 hours: ACCPlavix 10:12:03 Patient diabetic? No. 10:12:06 Previous problem with sedation/anesthesia? No ? 10:12:07 Snore? Yes 10:12:08 Sleep apnea? No 10:12:09 Deviated septum? No 10:12:10 Opens mouth fully? Yes 10:12:10 Sticks out tongue? Yes 10:12:17 Airway obstruction? Yes COPD/ ASTHMA 10:12:20 Pre procedure: right dorsailis pedis pulse 1+ Palpable, but thready & weak; easily obliterated 10:12:22 Patient pain scale 0/10 ?. 10:12:30 Modified Omar's test Ulnar < 7 seconds 10:12:33 Right Radial & Right Groin area was prepped with chlora-prep and draped in sterile fashion 10:12:36 Alarms reviewed by R. N. 10:12:36 Sharps counted by scrub and verified by R.N. 10:12:38 Use device set Radial Dx or PCI 10:12:39 ACIST Syringe (13315) opened to sterile field. 10:12:39 Medline Cath Pack ([id number]) opened to sterile field. 10:12:40 Bag Decanter (2001S) opened to sterile field. 10:12:41 ACIST Hand Control (44851) opened to sterile field. 10:12:41 ACIST Manifold (41096) opened to sterile field. 10:12:42 Tegaderm 4 x 4 (1626W) opened to sterile field. 10:12:42 MBrace Wrist Support ([id number]) opened to sterile field. 10:12:43 DIAGNOSTIC WIRE .035 260cm J wire (848381) opened to sterile field. 10:12:45 SHEATH 6FR Slender (10-2810) opened to sterile field. 10:12:51 Physician arrived 10:12:52 --------ALL STOP TIME OUT------ 10:12:52 Final Timeout: patient, procedure, and site verified with staff and physician. All members of the team are in agreement. 10:12:54 Right Radial & Right Groin site verified by team. 10:12:57 Maximum allowable Isovue 300 dose 300ml. Physician notified. (300ml for normal creatinines. For patients with creatinine of 1.7 or higher multiply weight(kg) x 5 divided by creatinine.) 10:13:01 Fire Safety Assessment: A--An alcohol-based skin anteseptic being used preoperatively., C--Open oxygen or nitrous oxide is being used., D--An ESU, laser, or fiber-optic light is being used. 10:13:04 Physical assessment completed. ASA score P 3 - A patient with severe systemic disease as per Israel Viera MD. 10:13:06 Sedation plan: IV Moderate Sedation Medication:Versed, Fentanyl 10:14:35 0.9% NaCl 100 ml/hr I.V. was administered by Gillian Mesa RN; used for procedure; 10:14:41 Oxygen 2 l/min etCO2 Nasal cannula was administered by Gillian Mesa RN; used for procedure; 10:14:46 Lidocaine 2% 20ml vial added to field was administered by Israel Viera MD; for local anesthetic; 10:14:50 Heparin Flush Bag (1000units/500ml NS) 2 bags added to field was administered by Israel Viera MD; used for procedure; 10:14:50 Procedure started. 10:14:50 Full Disclosure recording started 10::57 Local anesthetic to right radial artery with Lidocaine 2% by Israel Viera MD.INITIAL ACCESS ONLY 10::58 Radial Cocktail (Verapamil 2mg/Nitro 400mcg/Heparin 1500units) 1 syringe added to field was administered by Israel Viera MD; used for procedure; :15:04 Versed 2 mg I.V. was administered by Gillian Mesa RN; for sedation; :15:09 Fentanyl 50 mcg I.V. was administered by Gillian Mesa RN; for sedation; 10:15:12 A 6 Fr Short sheath was inserted into the Right Radial artery 10:15:35 A DIAGNOSTIC Clarita 110cm 5 Fr catheter (598224) was advanced over the wire and used for Procedure. 10:15:51 Zero performed for pressure channel P1 10:17:07 LV gram done using DELVALLE 10:17:09 Injector settings: Ml/sec: 5, Volume: 15, 10:17:10 LV hemodynamics recorded. 10:17:14 EF : 40 % 10:17:16 Dobutamine (500mg/250ml D5W) 5 mcg/kg/min I.V. drip was administered by Gillian Mesa RN; Per physician; infusing upon arrival to 10:18:25 LCA angiography performed. 10:18:25 RCA angiography performed. 10:19:52 Catheter removed. 10:20:04 [employer] [place] IVUS Catheter (80115G) opened to sterile field. 10:20:17 Heparin Bolus 4000 units I.V. was administered by Gillian Mesa RN; for anticoagulation; verified with Dr. Viera 10:20:44 [employer] Verrata Plus pressure wire (25638B) opened to sterile field. 10:20:45 INFLATOR Merit BasixCompak (YJ5784) opened to sterile field. 10:20:46 GUIDE 6FR XBLAD 3.5 catheter ([id number]) opened to sterile field. 10:21:22 6 Fr XBLAD 3.5 guide catheter was inserted over the wire 10:21:51 FFR/IFR wire advanced. 10:22:12 Wire advanced across lesion. 10:22:31 CX lesion measured at 0.96 with IFR 10:23:11 Wire redirected to LAD. 10:23:58 LAD lesion measured at 1.09 with IFR 10:25:06 IVUS catheter advanced over wire. 10:25:09 IVUS pass to LAD lesion performed. 10:26:29 IVUS catheter removed over wire. 10:26:36 Wire removed. 10:26:37 Guide catheter removed. 10:27:13 CHOICE PT Extra Support 182cm wire ([id number]) opened to sterile field. 10:27:37 GUIDE 6FR AR 2.0 catheter (XN8LA27) opened to sterile field. 10:27:46 6 Fr AR 2 guide catheter was inserted over the wire 10:27:59 CHOICE PT ES wire advanced. 10:28:26 Wire advanced across lesion. 10:30:19 Place stent Inflation Number: 1 A JAKE RX 3.0 x 38 stent ([id number]) was prepped and advanced across the Mid RCA. The stent was deployed at 17 SRAVANTHI for 0:10 (min:sec). 10:30:45 Stent catheter was removed intact over wire. 10:31:51 Place stent Inflation Number: 1 A JAKE RX 3.0 x 15 stent ([id number]) was prepped and advanced across the Prox RCA. The stent was deployed at 17 SRAVANTHI for 0:10 (min:sec). 10:32:40 TR BAND Standard (LVO62UUM) opened to sterile field. 10:32:45 Stent catheter was removed intact over wire. 10:32:45 Wire removed. 10:32:45 Guide catheter removed. 10:32:52 Sheath removed intact; hemostasis achieved with Mechanical Compression to the Right Radial artery. 10:32:54 Procedure ended.(Physican Out) 10:35:48 Fluoroscopy time 06.20 minutes. 10:35:51 Fluoroscopy dose: 423 mGy 10:35:51 Flurop Dose total: 423 10:36:03 Contrast amount:Isovue 300 102ml. 10:36:04 Sharps counted by scrub and verified by R.N. 10:36:06 TR band inflated with 12cc of air. 10:36:08 Insertion/operative site no bleeding no hematoma. 10:36:41 Post right radial artery:stable, soft, clean and dry 10:36:43 Post Procedure Pulses reassessed and unchanged 10:36:45 Post-procedure physical assessment completed. ASA score P 3 - A patient with severe systemic disease as per Israel Viera MD. 10:36:48 Post procedure rhythm: unchanged. 10:36:59 Estimated blood loss: 10 ml 10:37:00 Post procedure instruction explained to patient.Patient verbalizes understanding. 10:37:00 Patient needs reinforcement of post procedure teaching. 10:37:27 Procedure type changed to Cath procedure, Diagnostic procedure, LHC, LHC w/Coronaries, FFR/IVUS, FFR Initial, FFR Additional, Intra-Coronary IVUS Initial, Sedation Charges, Moderate Sedation up to 15 minutes, PCI procedure, Coronary Stent, Coronary Stent Initial 10:38:21 Procedure and supply charges have been captured, reviewed, submitted and are correct. 10:38:23 Procedure Complication : No complications 10:38:25 Vital chart was stopped 10:38:25 See physician's report for complete and final results. 10:38:40 Report given to PCU. 10:38:42 Patient transfered to PCU with Stretcher. 10:38:44 Procedure ended. 10:38:44 Full Disclosure recording stopped 10:38:48 End room use (Document Last) Intervention Summary Intervention Notes Time ActionType Lesion and Equipment Used Action# Pressure Duration Attributes 10:30:19 Place stent Mid RCA JAKE RX 3.0 x 1 17 00:10 38 stent ([id number]) 10:31:51 Place stent Prox RCA JAKE RX 3.0 x 1 17 00:10 15 stent ([id number]) Device Usage Item Name Manufacture Quantity Catalog Number Hospital Part Current Minimal Lot# / Charge Number Stock Stock Serial# Code ACIST Syringe Acist 1 31344 744913 231133 995987 20 (55616) Medical Systems Inc Medline Cath Medline 1 [id number] 406238 27681 058268 5 Pack ([id number]) Bag Decanter Microtek 1 626982 51091 631772 5 () Medical Inc. ACIST Hand Acist 1 60634 392642 339473 167470 5 Control Medical (52435) Systems Inc ACIST Manifold Acist 1 23257 994854 192842 388918 5 (26816) Medical Systems Inc Tegaderm 4 x 4 3M 1 1626W 003209 338544 146530 5 (1626W) MBrace Wrist Advanced 1 140-0250-00 336005 56366 206068 5 Support Vascular (384130523) Dynamics DIAGNOSTIC [place] 1 293037 313286 545559 441716 30 WIRE .035 260cm J wire (914563) SHEATH 6FR Terumo 1 [id number] 205532 102756 083789 5 Slender (80-1060) DIAGNOSTIC Terumo 1 40-5013 550453 825771 883730 5 Clarita 110cm 5 Fr catheter (537427) [employer] 1 60289L 027142 279313523 173669 5 Verrata Plus pressure wire (68078A) INFLATOR Merit Merit 1 II5010 734295 978879 541747 15 [employer]fr[employer]resh Group Medical (YZ6018) GUIDE 6FR Cardinal 1 [id number] 163863 573165 965412 10 XBLAD 3.5 Health catheter (68849080) [employer] 1 80034X 654087 220047 788840 8 [place] Eagleye IVUS Catheter (67887Z) CHOICE PT [place] 1 [id number] 571414 296574 823057 5 Extra Support Scientific 182cm wire (1068640E7) GUIDE 6FR AR Medtronic 1 [id number] 448717 73489 547027 1 2.0 catheter (BG2QB88) JAKE RX 3.0 x Medtronic 1 [id number] 972517 2906457 661824 5 [id number] 38 stent ([id number]) JAKE RX 3.0 x Medtronic 1 [id number] 731758 9946918 794458 5 [id number] 15 stent ([id number]) TR BAND Terumo 1 [id number] 520699 562724 888646 40 Standard ([id number]) Signature Audit [place] Stage Time Signature Unsigned Intra-Procedure 09/11/2018 Hussein Esqueda 10:39:08 AM RT(R) Signatures Monitor : Hussein Esqueda RT Signature : Date : Time : [facility] [address] [place] [address]
--- NOTE | ~2018-09-09 | DS ---
PATIENT:JODY RODRIGUEZ :46 MEDICAL RECORD: [id number] DISCHARGE SUMMARY ADMISSION DATE: 09/09/18 DISCHARGE DATE: 09/12/18 DISCHARGE DIAGNOSES: 1. Cardiomyopathy. 2. Congestive heart failure, chronic systolic dysfunction. 3. Non-Q-wave myocardial infarction. 4. Coronary artery disease. 5. Hypertension. 6. Hyperlipidemia. 7. Chronic obstructive pulmonary disease. 8. Smoking history. BRIEF HISTORY: Mr. Rodriguez presents with CHF and anginal symptomatology, found to have coronary artery disease, underwent successful PTCA and stent and found to have a cardiomyopathy. Underwent diuresis as well as dobutamine therapy, was discharged home with the addition of aspirin, Plavix, Pravachol, Lopressor, Lasix to his medical regimen. Follow up with [facility] in 1 month. TRANSINT:[id number] Voice Confirmation ID: [id number] DOCUMENT ID: [id number] SANJUANITA CARY MD CC: [id number] DICTATION DATE: 09/12/18 1527 CHAIN LINK FENCE INSTALLER: 09/13/18 0542 DIS IN 09/12/18 [id number] [place] [address]
--- NOTE | ~2018-09-09 | EC ---
PATIENT:JODY RODRIGUEZ DATE OF SERVICE: 09/09/18 SEX: M MEDICAL RECORD: [id number] DATE OF : [birth year] LOCATION:D.M2 D.211 AGE OF PATIENT: 67 ADMISSION DATE: 09/09/18 REFERRING PHYSICIAN: INTERPRETING PHYSICIAN: SANJUANITA VIERA MD ECHOCARDIOGRAM REPORT ECHO CHARGES 4 ECHO COMPLETE Date: 09/09/18 CLINICAL DIAGNOSIS: MD ECHOCARDIOGRAPHIC MEASUREMENTS (adult normal given) AC root (d.<3.7cm) 2.5 cm LV Septum d (<1.2 cm> 1.2 cm Valve Excursion 1.3 cm LV Septum (systole) 1.4 cm Left Atria (s.<4.0cm> 2.5 cm LVPW d(<1.2cm) 1.1 cm RV (d.<2.3cm) 2.6 cm LVPW (sytole) 1.5 cm LV diastole(<5.6CM) 3.9 cm MV E-F(>70mm/sec) cm LV systole 2.9 cm LVOT Diameter 1.7 cm MV exc.(>10mm) cm Est.ejection fraction (50-75%) % DOPPLER: LVIT cm/sec A 75 cm/sec E 64 cm/sec LA cm/sec RVSP 41.6 mmHg LVOT 91 cm/sec AOP1/2T m/s Asc. Ao 110 cm/sec RVOT 77 cm/sec RA cm/sec PA 96 cm/sec AV Gradient Peak 4.9 mmHg AV Mean 3.5 mmHg AV Area 1.8 cm MV Gradient Peak 2.7 mmHg MV Mean 1.5 mmHg MV Area cm COMMENTS: Breakfast Host: Candy MUNOZBERTRAM TAVO Phone Engineer: Tyron Viera TAPE# PACS Pericardial Effusion N DATE OF SERVICE: 09/09/2018 FINDINGS: 1. Left ventricular chamber size is within normal limits. Left ventricular systolic function is moderately depressed. Overall ejection fraction in the 30% range. 2. Left atrium, right atrium, and right ventricular chamber sizes are within normal limit. 3. Valvular structures have normal structure and motion. 4. Doppler interrogation reveals mild mitral regurgitation and mild tricuspid ECHOCARDIOGRAM REPORT [id number] JODY RODRIGUEZ regurgitation. No other valvular insufficiency or stenosis. Pulmonary systolic pressure is estimated at 42 mmHg. 5. No evidence of pericardial effusion or left ventricular thrombus. TRANSINT:[id number] Voice Confirmation ID: [id number] DOCUMENT ID: [id number] SANJUANITA VIERA MD CC: [id number] DICTATION DATE: 09/10/18 1006 ELECTRICIANS TOP HELPER: 09/10/18 1204 ADM IN [place] [address] [place] [address]
[2018-09-09 04:00] VITALS: BP 117/73
[2018-09-09 06:10] LABS: BASOPHILS 0.6 % (0-2); EOSINOPHILS 0.2 % (0-7); HEMATOCRIT 36.6 % (42.0-54.0); HEMOGLOBIN 12.6 g/dL (13.5-17.5); LYMPHOCYTES 19.9 % (15-50); MCH 32.3 pg (26.0-34.0); MCHC 34.4 g/dL (31.0-37.0); MCV 93.8 fL (80.0-100.0); MEAN PLATELET VOLUME 9.4 fL (7.4-10.4); MONOCYTES 19.5 % (2-11); NEUTROPHILS 59.8 % (40-80); PLATELET COUNT 231 10x3/uL (130-400); RDW 13.4 % (11.5-14.5); WBC 5.1 10x3/uL (4.8-10.8)
--- NOTE | 2018-09-09 06:19 | NUR ---
0500 PT ARRIVED TO FLOOR VIA EMS FROM [facility]. ALERT/ORIENTED. ACCOMPANIED BY HIS SISTER. TRANSFERRED TO BED. BASELINE EKG'S OBTAINED. TELEMETRY STARTED, SHOWING SR/80'S. ADMISSION ASSESSMENT COMPLETED. HISTORY UPDATED. HOME MEDS REVIEWED. PT HAS BEEN ON MULTIPLE IV ABT FOR BRONCHITIS AND COPD AT [facility]. SPOKE WITH DR CARY ON PHONE, REPORT GIVEN. ORDERS RECIEVED. WILL CONSULT DR BALTAZAR TO FOLLOW PULMONOLOGY NEEDS. PT CURRENTLY RESTING WITH O2 @ 2L/NC. SISTER AT BEDSIDE. PLAN OF CARE INITIATED. BASELINE LABS HAVE BEEN OBTAINED.
[2018-09-09 06:40] VITALS: BP 117/73; BMI 19.6
[2018-09-09 07:01] LABS: CKMB 10.8 U/L (0.0-3.6); CREATINE KINASE 135 UL (21-232)
[2018-09-09 07:06] LABS: TROPONIN-I 3.139 ng/mL (0.000-0.060)
[2018-09-09 07:57] VITALS: BP 115/63
--- NOTE | 2018-09-09 11:16 | NUR ---
LEAVING FOR CT BY BED.
[2018-09-09 13:01] VITALS: BP 115/65
--- NOTE | 2018-09-09 13:02 | NUR ---
BILAT SCDS ON ORDERED.
[2018-09-09 15:57] VITALS: BP 115/65
--- NOTE | 2018-09-09 20:00 | NUR ---
INITIAL ROUNDS AND ASSESSMENT COMPLETED. PT RESTING IN BED WITH SISTER AT BEDSIDE. ALERT/ORIENTED. BREATHING LESS LABORED TODAY THEN UPON ADMIT LAST NIGHT. O2 @ 2L/NC. SR PER TELEMETRY. AGUILERA PATENT TO BEDSIDE DRAIN BAG WITH YELLOW URINE. SALINE LOCK TO LFA. PLAN OF CARE IS TO IMPROVE RESPIRATORY STATUS BEFORE MANAGER CRITICAL CARE DOES ANY INTERVENTIONS. MONITOR AND CPOC.
[2018-09-09 20:35] VITALS: BP 105/56
--- NOTE | 2018-09-09 22:00 | NUR ---
SCHEDULED MEDS HAVE BEEN GIVEN. PT WATCHING TV. SISTER AT BEDSIDE. AGUILERA PATENT TO BEDSIDE DRAIN BAG. MONITOR AND CPOC.
[2018-09-10 01:13] VITALS: BP 96/52
--- NOTE | 2018-09-10 02:18 | NUR ---
IV LASIX ADMINISTERED. PT RESTING. WILLY PATENT. CALL LIGHT IN REACH.
[2018-09-10 05:26] VITALS: BP 110/64
--- NOTE | 2018-09-10 07:15 | NUR ---
RECEIVED PT IN BED AAOX4 RESP SL SOB ON ROOM AIR DENIES ANY DISCOMFORT OR NEEDS AT THIS TIME WILL CONTINUE TO MONITOR
[2018-09-10 08:12] VITALS: Ht 177.8 cm; Wt 60.0 kg
[2018-09-10 08:16] VITALS: BP 111/61
--- NOTE | 2018-09-10 10:37 | NUR ---
DOBUTAMINE DRIP STARTED TO LFA @ 9.2 MLS/HR WITHOUT DIFFICULTY WT 61.36 KG PT TOLERATING WELL
[2018-09-10 11:36] VITALS: BP 116/64
[2018-09-10 15:40] VITALS: BP 109/58
--- NOTE | 2018-09-10 19:40 | NUR ---
RESUMING PATIENT CARE. PATIENT IS ALERT AND ORIENTED, RESTING COMFORTABLY IN BED. RESPIRATIONS ARE EVEN AND UNLABORED NO S/S OF DISTRESS. NO C/O PAIN. NEEDS MET. CALL LIGHT WITHIN REACH. WILL CPOC.
[2018-09-10 20:00] VITALS: BP 104/53
[2018-09-11] VITALS: BP 104/54
[2018-09-11 04:00] VITALS: BP 99/48
--- NOTE | 2018-09-11 07:24 | NUR ---
ASSESSMENT DONE. DEIES NEEDS.
[2018-09-11 07:47] VITALS: BP 107/50
--- NOTE | 2018-09-11 09:50 | NUR ---
TO ORDER CLERK PER BED
--- NOTE | 2018-09-11 10:58 | NUR ---
RETURN FROM CATH PER BED. TR-BAND TO RT WRIST.
--- NOTE | 2018-09-11 12:23 | NUR ---
I have reviewed this patient and I concur with the Shift Assessment completed by the Licensed Practical Nurse today this shift.
[2018-09-11 16:16] VITALS: BP 91/48
[2018-09-11 16:22] VITALS: BP 100/60
--- NOTE | 2018-09-11 16:57 | NUR ---
WITHOUT CHANGES OR DISTRESS NOTED AT THIS TIME. DENIES NEEDS.
--- NOTE | 2018-09-11 17:47 | NUR ---
AGUILERA CATH DCD
--- NOTE | 2018-09-11 19:46 | NUR ---
RESUMING PATIENT CARE. PATIENT IS ALERT AND ORIENTED, RESTING COMFORTABLY IN BED. RESPIRATIONS ARE EVEN AND UNLABORED. NO S/S OF DISTRESS. NO C/O PAIN. NEEDS MET. CALL LIGHT WITHIN REACH. WILL CPOC.
[2018-09-11 20:00] VITALS: BP 104/49
[2018-09-12 00:30] VITALS: BP 101/41
[2018-09-12 04:30] VITALS: BP 124/77
--- NOTE | 2018-09-12 07:15 | NUR ---
RECEIVED PT IN BED AAOX4 RESP UNLABORED SKIN W/D COLOR WNL DENIES ANY NEEDS OR DISCOMFORT WILL CONTINUE TO MONITOR
[2018-09-12 07:56] VITALS: BP 113/54
--- NOTE | 2018-09-12 11:06 | NUR ---
RESTING QUIETLY NAD NOTED VISITING WITH SISTER
[2018-09-12 11:57] VITALS: BP 109/54
--- NOTE | 2018-09-12 13:07 | NUR ---
Nutrition follow-up: Pt s/p cath today diet: aha with po intake ~40% of last 6 meals Labs reviewed Wt: 132# +BM RDN following.
--- NOTE | 2018-09-12 15:24 | HP ---
PATIENT: JODY RODRIGUEZ MEDICAL RECORD: [id number] ACCOUNT: [id number] LOCATION:[address] : [birth year] ADMISSION DATE: 09/09/18 PCP: YVONNE DAVID HISTORY AND PHYSICAL EXAMINATION DIAGNOSES: 1. Shortness of breath, dyspnea on exertion. 2. Pneumonia. 3. Chronic obstructive pulmonary disease. 4. Smoking history. 5. Non-Q-wave myocardial infarction. 6. Coronary artery disease. 7. Previous percutaneous transluminal coronary angioplasty stent. 8. Hyperlipidemia. HISTORY OF PRESENT ILLNESS: Mr. Rodriguez presents to [facility] with shortness of breath and chest pressure early just over the past 2 days. His chest x-ray was compatible with possible pneumonia. His troponin is positive. He has a history of coronary artery disease, previous cardiac stents in 2017. He was doing well until the last 2 days. He has a history of being told that he has had congestive heart failure and fluid on his lungs, but we do not have a recent ejection fraction. PHYSICAL EXAMINATION: GENERAL APPEARANCE: Well-nourished, well-developed, appears stated age. Level of distress, comfortable. PSYCHIATRIC: Mental status, alert, normal affect. Orientation, oriented to time, place and person. EYES: Lids and conjunctiva, noninjected. No discharge, no pallor. ENT: Lips, teeth, gums, normal dentition. Oropharynx, no cyanosis, no pallor. NECK: Carotid arteries, bilateral normal upstroke, no bruits, no thrills. JUGULAR VEINS: No jugular venous pressure or distention. CERVICAL LYMPH NODES: Nontender, nonenlarged. THYROID: Not enlarged. Nontender. No nodules. LUNGS: Respiratory effort, unlabored. CHEST: Normal curvature. No thoracic deformity. No chest wall tenderness. Percussion, resonant. Auscultation, clear. No wheezes, no rales, no rhonchi. CARDIOVASCULAR: Precordial exam, nondisplaced. No heaves or pericardial thrills. Rate and rhythm, regular. Heart sounds, normal S1, normal S2. No S3, no gallop, no rub. Systolic murmur, not heard. Diastolic murmur, not heard. EXTREMITIES: No cyanosis, no edema. Peripheral pulses, full and equal in all extremities, except as noted. No bruits appreciated. ABDOMEN: Soft, nondistended. Normal aorta. No bruit. Nontender. No masses. Liver, nontender, no hepatomegaly. Spleen, nontender, no splenomegaly. MUSCULOSKELETAL: No joint tenderness. No joint swelling. No erythema. NEUROLOGICAL: Normal gait, normal strength, normal tone. SKIN: Warm and dry. OVERALL IMPRESSION: Shortness of breath, non-Q-wave myocardial infarction, most likely has recurrent hemodynamically significant coronary artery disease; however, he is very short of breath. We will not proceed with coronary angiography at this time. We will consult pulmonary for IV antibiotics and pulmonary treatment. We will give him Lasix, get an echocardiogram today to evaluate his ejection fraction. Continue his aspirin and Plavix. We will give him Pravachol as well. Heart rate is in the 90s. We will try Bystolic from the HISTORY AND PHYSICAL [id number] JODY RODRIGUEZ standpoint of a beta compa that hopefully will not worsen his bronchospastic lung disease and possibly proceed with coronary angiography in the next few days. TRANSINT:[id number] Voice Confirmation ID: [id number] DOCUMENT ID: [id number] SANJUANITA CARY MD at 1524 CC: [id number] DICTATION DATE: 09/09/18922 SINGLE PASS SOIL STABILIZER OPERATOR: 09/09/18940 ADM IN [facility] [address] [id number]
[2018-09-12] MEDS ORDERED: TOPROL XL25 MG PO (15:34)
[2018-09-12] MEDS ORDERED: PRAVACHOL40 MG PO (15:34)
[2018-09-12] MEDS ORDERED: LASIX40 MG PO (15:35)
--- NOTE | 2018-09-12 16:26 | MORECARE ---
CASE MANAGEMENT DISCHARGE SUMMARY PATIENT: JODY RODRIGUEZ UNIT: [id number] ADM DATE: 09/09/18 AGE: 67 : 46 SEX: M ROOM/BED: D.2116 AUTHOR: SUSY,DOC PHYSICIAN: REFERRING PHYSICIAN: SANJUANITA CARY MD DATE OF SERVICE: 09/12/18 Discharge Plan Patient Name: JODY RODRIGUEZ Facility: [facility]:[place] : 1950 Planned Disposition: Home Anticipated Discharge Date: 09/12/18 Discharge Date: Expected LOS: 3 Initial Reviewer: [email or web address] Initial Review Date: 09/12/2018 Generated: 09/12/18 5:25 pm Comments DCP- Discharge Planning Updated by [email or web address]: Ruy Toscano on 09/12/18 3:[address] Patient Name: JODY RODRIGUEZ Admission Status: Elective Accout number: [id number] Admission Date: 09-09-2018 : 1950 Admission Diagnosis:SHORTNESS OF BREATH Attending: PASHA CARY Current LOS: 3 Anticipated DC Date: 09-12-2018 Planned Disposition: Home Primary Insurance: MEDICARE A & B Discharge Planning Comments: CM MET WITH PT IN ROOM TO DISCUSS DISCHARGE PLANNING AND NEEDS. JODY RODRIGUEZ provided verbal consent to discuss current and ongoing needs with/in the presence of: SISTER, ARTEM RODRIGUEZ. PT REPORTS LIVING AT HOME INDEPENDENTLY WITH HIS ADULT SISTER. PT HAS NEBULIZER AND NIGHT TIME OXYGEN FROM [facility]. PT HAS NO SERVICES ASSISTING IN THE HOME. CM DISCUSSED AVAILABILITY OF HOME HEALTH, REHAB SERVICES AND MEDICAL EQUIPMENT. PT DENIES DISCHARGE NEEDS, REPORTS HIS SISTER IS HERE TO DRIVE HIM HOME TODAY. IMPORTANT MESSAGE FROM MEDICARE PROVIDED AND EXPLAINED. GRAILS WEB APPLICATION DEVELOPER NURSE NOTIFIED. Digital Librarian: Ruy Toscano DCPIA - Discharge Planning Initial Assessment Updated by [email or web address]: Ruy Toscano on 09/12/18 4:21 pm * Is the patient Alert and Oriented? Yes * How many steps to enter\exit or inside your home? 1-0 / 1-I * PCP NUHA FERNANDO * Pharmacy [facility] [place] [facility] * Preadmission Environment Home with Family * ADLs Independent * Equipment Nebulizer Oxygen * Other Equipment OXYGEN AT NIGHT ONLY [facility] - PROVIDER * List name and contact numbers for known caregivers / representatives who currently or will assist patient after discharge: ARTEM RODRIGUEZ, SISTER, * Verbal permission to speak to the caregivers and representatives has been obtained from the patient. Yes * Community resources currently utilized None * Please name any agencies selected above. NONE * Additional services required to return to the preadmission environment? No * Can the patient safely return to the preadmission environment? Yes * Has this patient been hospitalized within the prior 30 days at any hospital? No Coverage Notice Reviewer: [email or web address] Therese Toscano Notice Issued Date-Time: 09/12/2018 15:45 Notice Type: IM Discharge Notice Notice Delivered To: Patient Relationship to Patient: Solder Technician Name: Delivery Method: HAND - Hand Delivered Leyda Days: Prior Verbal Notification: Recipient Understood Notice: Yes Recipient Signature: Yes Med Rec Note Co-signed by Attending: Coverage Notice Comment: Patient Name: JODY RODRIGUEZ Page [id number] at 1626 All edits/amendments must be made on the electronic document DICTATION DATE: 09/12/18 1625 SALES REPRESENTATIVE PUBLIC UTILITIES: MARGARET 09/12/18 1625 RPT#: [id number] DC DATE: STATUS: ADM IN [facility] [address] [place] [address] END OF REPORT
--- NOTE | 2018-09-12 16:55 | NUR ---
REVIEWED DISCHARGE INSTRUCTIONS WITH PT AND SISTER BOTH STATE UNDERSTANDING COPY GIVEN DCD SALINE LOCK TO LFA WITH IV CATHETER INTACT SITE FREE OF REDNESS OR EDEMA PT DISCHARGED HOME LEFT UNIT VIA W/C IN STABLE CONDITION WITH ALL PERSONAL BELONGINGS
== END 2018-09-12 16:55 | disposition home or self-care (01) | DRG 246 ==
LOC: OBSVTIME 05:00 → D.M2 05:00
PROVIDERS: ADMIT Internal Medicine Interventional Cardiology; ATTEND Internal Medicine Interventional Cardiology
PROC: 4A023N7 Measurement of Cardiac Sampling and Pressure, Left Heart, Percutaneous Approach (ICD-10-PCS; 2018-09-11)
PROC: B2111ZZ Fluoroscopy of Multiple Coronary Arteries using Low Osmolar Contrast (ICD-10-PCS; 2018-09-11)
PROC: B2151ZZ Fluoroscopy of Left Heart using Low Osmolar Contrast (ICD-10-PCS; 2018-09-11)
PROC: 027035Z Dilation of Coronary Artery, One Artery with Two Drug-eluting Intraluminal Devices, Percutaneous Approach (ICD-10-PCS; principal; 2018-09-11 09:44)
PROC: B240ZZ3 Ultrasonography of Single Coronary Artery, Intravascular (ICD-10-PCS; 2018-09-11 09:44)
DX: I21.4 Non-ST elevation (NSTEMI) myocardial infarction (principal); J18.9 Pneumonia, unspecified organism; J44.0 Chronic obstructive pulmonary disease with (acute) lower respiratory infection; I42.9 Cardiomyopathy, unspecified; J44.1 Chronic obstructive pulmonary disease with (acute) exacerbation; I25.10 Atherosclerotic heart disease of native coronary artery without angina pectoris; E78.5 Hyperlipidemia, unspecified; I11.0 Hypertensive heart disease with heart failure; I50.9 Heart failure, unspecified; F17.210 Nicotine dependence, cigarettes, uncomplicated

== ENCOUNTER → 2018-11-15 12:42 | Outpatient (CLI) | payer MEDICARE ==
[2018-09-10 08:12] VITALS: BMI 19.3
[~2018-11-15 12:42] MED LIST changes: +LASIX40 MG PO; +PRAVACHOL40 MG PO; +TOPROL XL25 MG PO
== END | disposition home or self-care (01) ==
LOC: D.RT 11-13 10:00
PROVIDERS: ATTEND Internal Medicine Pulmonary Disease
DX: J44.9 Chronic obstructive pulmonary disease, unspecified (principal)